=== PATIENT | male | born 1965 | race Caucasian/White ===

== ENCOUNTER 2023-08-07 08:35 | Outpatient (AMB) | payer BC, SELFPAY ==
--- NOTE | 2023-08-07 08:51 | A.SPINEOV_ITS ---
Intake Intake Visit Reasons: lumbar stenosis Intake Note: Mr. Sandhu is here today c/o back pain Circle Edger Required: No Assessment & Plan Assessment & Plan (1) Lumbar radiculopathy: Code(s): M54.16 - Radiculopathy, lumbar region Plan Dear Garry Thank you for referring Mr Sandhu to our office today. 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 He gets tingling of his foot. He will occasionally feel it on the left but the primary symptoms are on the right. 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 The symptoms are aggravated with any kind of activity including prolonged standing, prolonged sitting, walking, bending or lifting etc.. Often he will have to avoid certain activities after a long day at work because the pain has been so severe. He underwent an MRI showing herniated disc at L4-5, pars defects at L5 with spond ylolysis and foraminal stenosis. He was referred to see us for surgical opinion. PMH: He is reasonably healthy, history of hypertension, left total hip replacement, carpal tunnel repair, torn ligament in his right ankle. Denies any heart attacks, strokes, bleeding disorders, kidney disorders, previous abdominal surgery, previous back surgery Social hx: He does not smoke, drink or use any recreational drugs Medications: Amlodipine, Alleve Allergies: Terramycin Physical exam: Slightly antalgic gait but strength and reflexes of the lower extremities is normal Imaging review: Lumbar MRI done at the [facility] in 2023 shows degenerative listhesis at L5-S1 with spondylolysis and bilateral neural foraminal stenosis, worse on the left. He has a central disc herniation at L4-5 with moderate central canal stenosis. 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 He does not have a significant component of back pain. The right leg pain is the main symptom. He has 2 issues in his back that could be part of his syndrome. The 1st is he has a central disc at L4-5 with moderate central canal stenosis with narrowing of the lateral recess. Secondly he has a pars defect at L5 with a grade 1 spondylolisthesis and bilateral neuroforaminal stenosis. Interesting that the stenosis is worse on the left than the right but he is primarily symptomatic on the right. He has been through conservative management. He is interested in surgery. He is hoping to do something later this year, as he will be working a lot over the summer. He was interested in the idea of a cortisone shot as well . I will send him to to see if he will consider an L4-5 epidural vs right L5 TFE. I will review his imaging with Dr. Rangel to finalize a surgical plan, and get him a follow-up sometime around January so we can plan his surgery in the fall. We discussed that in this situation of a spondylolisthesis with nerve compression, there can be 2 separate options including fusion versus nonfusion options. Because he does not have a lot of back pain, usually Dr. Rangel will lean in the direction of a simple decompression without instrumentation as long as the patient understands that this may develop down the road. We did briefly discuss risks and benefits of both. Thank you for allowing us to care for your patient. The total time spent with this visit with this patient was 45 minutes reviewing history, physical exam, lumbar imaging review, and implementation of treatment plan or further diagnostic testing Sheldon Rangel MD,PhD [facility] Orders: Referrals Physiatry Referral M54.16 - Radiculopathy, lumbar region Coding Level of Care Code New Pt Level 4 (50219) Diagnoses Lumbar radiculopathy M54.16
== END 2023-08-07 10:31 | disposition home or self-care (01) ==
PROVIDERS: PCP Internal Medicine; Referring Provider Physician Assistant; Visit Provider Physician Assistant
DX: M54.16 Radiculopathy, lumbar region (principal)
CPT/HCPCS: 99204

== ENCOUNTER → 2023-08-07 08:35 | Outpatient (BNVA) | payer BC, SELFPAY | PROVIDERS: PCP Internal Medicine; Visit Provider Physician Assistant ==

== ENCOUNTER 2024-02-04 06:29 | Day surgery (SDC) | payer BC, SELFPAY ==
[2024-01-14 10:06] VITALS: BP 130/91; PULSE 60; RESP 18; O2SAT 96; BMI 34.4
[2024-02-04] VITALS (7 sets, daily range): BP systolic 112–136; BP diastolic 60–96; PULSE 60–69; RESP 16; TEMP 35.8–36.9; O2SAT 93–98
--- NOTE | 2024-02-04 07:24 | P.HPSUR_ITS ---
Pre-Procedural Eval Section A - 24 Hr Update-Section A only Date of Service: 02/04/24 The patient is an INPATIENT: No Changes since office visit: No Cold of Flu in the past 2 weeks, No New Medical Problems, No Changes in Medication and No Patient answered all questions The patient has been examined within 24 hours of the surgical procedure. The History & Physical has been completed within 30 days and I have reviewed it.: No Section B - Complete if H&P > 30 days Chief Complaint: Radiculopathy, lumbar region Allergies: Allergies Allergy/AdvReac Type Severity Reaction Status Date / Time oxytetracycline Allergy Unknown Verified 01/13/24 08:43 [From Terramycin] Review of Systems Sugical H&P ROS: Negative: Constitution, Cardiovascular, Respiratory, Neurological, Psychiatric, Hem-Onc, Allergic/Immunologic, Gastrointestinal, Genitourinary, Musculoskeletal, Integumentary, Endocrine and Eyes/Ears/No se/Throat Exam Surgical H&P Exam: Normal: HEENT, Normal: Heart, Normal: Lungs, Normal: Extremities, Normal: Abdomen, Normal: Skin and Normal: Neurological (awake, alert,oriented x 3 ) Plan Diagnosis/Plan: Unchanged right L4-5 decompression and L5 foraminotomy Time Spent With Patient Time: Total time managing care of this patient today __5__ minutes.
[2024-02-04] MEDS: methocarbamoL 750 MG TABLET PO (07:30)
[2024-02-04] MEDS: Lactated Ringers 1,000 ML 100 ML IVCONT (07:31)
[2024-02-04] MEDS: Gabapentin 300 MG CAPSULE PO (07:31)
--- NOTE | 2024-02-04 07:42 | PM.DS ---
DS: Providers Provider Date of Service: 02/04/24 Date of discharge: 02/04/24 Primary care physician: Unknown Physician Admitting clinician: Tremaine Rangel DS: Diagnosis Discharge Diagnosis (1) Lumbar radiculopathy: Status: Acute DS: Summary Time Attestation Discharge Coordination Time (in mins): 4 Quality: Safe Use of Opioids Does Pt have an Active Cancer Diagnosis on the Problem List?: No Quality: Stroke Does the patient have a stroke diagnosis?: No Physical Exam Vital Signs: Vital Signs: Last Vital Signs Temp 96.5 F L 02/04/24 07:39 Pulse 69 02/04/24 07:39 Resp 16 02/04/24 07:39 BP 136/96 H 02/04/24 07:39 Pulse Ox 97 02/04/24 07:39 O2 Del Method Room Air 02/04/24 07:39 BMI result Body Mass Index 34.4 Discharge Plan Discharge Patient Disposition: Home, Self-Care Referrals: Physician,Unknown J [Primary Care Provider] - 1 Week Discharge Medications: New docusate sodium [Colace] 100 mg capsule 100 mg PO BID Qty: 20 0RF oxycodone 5 mg tablet 5 mg PO Q4H PRN (Reason: pain) Qty: 30 0RF Rx Instructions: Partial Fill upon patient request. Continued amlodipine 5 mg tablet 5 mg PO DAILY naproxen sodium [Aleve] 220 mg Capsule 220 mg PO DAILY PRN (Reason: Pain) cetirizine 5 mg Tablet 5 mg PO DAILY fluticasone propionate 50 mcg/actuation [place],Suspension 1 spray INTRANASAL DAILY Rx Instructions: administer into each nostril Discharge Orders: Discharge Order (Routine); Ordered 02/04/24 Ordered By: Sheldon Jamil Diet: Advance to usual diet Activity on Discharge: As tolerated Activity Restrictions/Additional Instructions: After your spinal surgery we ask you to observe the following restrictions/guidelines: Activity: It is normal to feel some discomfort as you increase your activity, but that will improve with time. We ask you avoid heavy lifting or acitivities that cause pain. As a general rule, 8lbs is a safe limit for lifting right after surgery. Walk as much as you feel comfortable but not to exhaustion. You will feel extra tired the first few days after surgery. Stay well hydrated. It is OK to walk up and down stairs You may return to driving when you are off narcotics (such as vicodin, oxycodone, dilaudid, etc), and you are back to normal functional capacity. If you have any concerns please check with office before driving. Return to work is specific to each patient and each surgery, so please speak with your doctor/PA at first follow up. Please bring paperwork such as FMLA at that time if you need it filled out. Medications: For optimum pain control, it is best to start with a combination of 500 mg of Tylenol every 4 hours with 600 mg of Motrin every 8 hours, and use narcotics as needed in between for breakthrough pain. We will give you a short supply of narcotics after surgery (usually one weeks worth). If you need more please call the office but do not use more than prescribed. You will need to give our office 48 hours notice if you need narcotics refilled and we do not fill narcotics on weekends or evenings. If you are on a narcotic, it is a good idea to take a stool softener such as colace or senna to avoid constipation If you take blood thinner such as aspirin, Plavix, Coumadin, Effient, Eliquis etc for conditions such as Afib, DVT, Pulmonary embolus, coronary disease, stents etc please speak with your surgeon about specific details as to when you can resume these medications. You can resume NSAIDs on post op day 1 (eg: Motrin, Naproxen, etc). Follow up: Please call the office, , after surgery to arrange a 3 week follow up for wound check. Wound Care: You may remove your dressing on the first day after surgery. ?You may ?leave open to air. Please do not remove the steri strips underneath. they will fall off on their own in one week. IT IS NORMAL FOR THE WOUND TO OOZE OR BE BLOODY FOR A FEW DAYS AFTER SURGERY. ?IF THIS HAPPENS JUST PLACE NEW DRESSING OVER IT TO AVOID STAINING CLOTHES. You may shower on post op day # 1 We ask that you do not let the water soak the wound. If it does get wet, just towel dry lightly. Please do not scrub your incision or place any type of chemical/ointment on the wound. No tub baths, pools or jacuzzis for one month. If you have any leaking or redness from your wound, or fevers, please call office Print Language: Cambodian
--- NOTE | 2024-02-04 08:10 | P.CONAN_ITS ---
Documented by User: Poppy Cormier NP 02/03/24 09:20 HPI - Anesthesia Eval Consult details Narrative: 59yo M for Right L4-5 Daniel-Laminotomy,L4-5 Foraminotomy PAT 01/14/[address] Chelsy HARRISON Active Problems Active Problems: All Active Problems Lumbar radiculopathy (Acute) Past Medical History Medical History Arthritis Hx of simple renal cyst Habitual snoring HTN (hypertension) Surgical History Surgical History Hx of tonsillectomy History of biopsy of bladder H/O colonoscopy History of ankle surgery Hx of carpal tunnel repair History of total left hip replacement Social History Social History Are you a primary laboratory animal care veterinarian to a significant other at home: No Do you presently have visiting nurse or other home services: No Patient Tobacco Use Status: Never used Tobacco Use of substances other than those prescribed or required for medical reasons: No Have you been hit, kicked, punched, or otherwise hurt by someone within the past year? If so, by whom?: No Are you DNR?: No Advance Directives: No Advance Directives Information Provided: Yes Advance Directives on File: No Recently lost weight without trying: No Eating poorly because of decreased appetite: No Nutrition Risks: No Nutritional Risk Poor oral hygiene: Yes (full upper and lower dentures) Meds Allergies Allergy/AdvReac Type Severity Reaction Status Date / Time oxytetracycline Allergy Unknown Verified 02/04/24 07:29 [facility] Home Medications ?Medication ?Instructions ?Recorded ?Confirmed ?Last Taken ?Type amlodipine 5 mg tablet 5 mg PO DAILY 01/13/24 02/04/24 02/04/24 History naproxen sodium 220 mg capsule 220 mg PO DAILY PRN Pain 01/13/24 02/04/24 01/28/24 History (Aleve) cetirizine 5 mg tablet 5 mg PO DAILY 01/14/24 02/04/24 02/04/24 History fluticasone propionate 50 1 spray intranasal DAILY 01/14/24 02/04/24 02/04/24 History mcg/actuation nasal spray,suspension Exam Height,Weight and Vital Signs: Height 5 ft 10 in Weight 108.862 kg Last Vital Signs Pulse 60 01/14/24 10:06 Resp 18 01/14/24 10:06 BP 130/91 H 01/14/24 10:06 Pulse Ox 96 01/14/24 10:06 O2 Del Method Room Air 01/14/24 10:06 Assessment and Plan Assessment Anesthesia Assessment: Chart Reviewed Documented by User: Nuria Valentino, DO 02/04/24 09:07 PMFSH Past Medical History Medical History Arthritis Hx of simple renal cyst Habitual snoring HTN (hypertension) Family History Family history of problems with anesthesia: No Surgical History Surgical History Hx of tonsillectomy History of biopsy of bladder H/O colonoscopy History of ankle surgery Hx of carpal tunnel repair History of total left hip replacement History of Problems with Anesthesia: No Social History Social History Are you a primary laboratory animal care veterinarian to a significant other at home: No Do you presently have visiting nurse or other home services: No Patient Tobacco Use Status: Never used Tobacco Use of substances other than those prescribed or required for medical reasons: No Have you been hit, kicked, punched, or otherwise hurt by someone within the past year? If so, by whom?: No Are you DNR?: No Advance Directives: No Advance Directives Information Provided: Yes Advance Directives on File: No Recently lost weight without trying: No Eating poorly because of decreased appetite: No Nutrition Risks: No Nutritional Risk Poor oral hygiene: Yes (full upper and lower dentures) Meds Allergies Allergy/AdvReac Type Severity Reaction Status Date / Time oxytetracycline Allergy Unknown Verified 02/04/24 07:29 [From Terramycin] Home Medications ?Medication ?Instructions ?Recorded ?Confirmed ?Last Taken ?Type amlodipine 5 mg tablet 5 mg PO DAILY 01/13/24 02/04/24 02/04/24 History naproxen sodium 220 mg capsule 220 mg PO DAILY PRN Pain 01/13/24 02/04/24 01/28/24 History (Aleve) cetirizine 5 mg tablet 5 mg PO DAILY 01/14/24 02/04/24 02/04/24 History fluticasone propionate 50 1 spray intranasal DAILY 01/14/24 02/04/24 02/04/24 History mcg/actuation nasal spray,suspension Exam Exam Date and Time: 02/04/24 0810 Height,Weight and Vital Signs: Height 5 ft 10 in Weight 108.862 kg Last Vital Signs Pulse 60 01/14/24 10:06 Resp 18 01/14/24 10:06 BP 130/91 H 01/14/24 10:06 Pulse Ox 96 01/14/24 10:06 O2 Del Method Room Air 01/14/24 10:06 Vital Signs Pulse Rate 60 01/14/24 10:06 Respiratory Rate 18 01/14/24 10:06 Blood Pressure 130/91 H 01/14/24 10:06 Pulse Oximetry 96 01/14/24 10:06 Oxygen Delivery Method Room Air 01/14/24 10:06 Temperature 96.5 F L 02/04/24 07:39 Pulse Rate 69 02/04/24 07:39 Respiratory Rate 16 02/04/24 07:39 Blood Pressure 136/96 H 02/04/24 07:39 Pulse Oximetry 97 02/04/24 07:39 Oxygen Delivery Method Room Air 02/04/24 07:39 Airway Mallampati Class: III TM Dist: <=3cm Neck ROM: Full Denture: Upper and Lower Heart: S1S2 Lungs: CTAB Assessment and Plan Assessment Anesthesia Assessment: Anesthesia Plan Discussed and Chart Reviewed Final Anesthetic Review Family History of Problems with Anesthesia: No History of Problems with Anesthesia: No NPO: Yes ASA Class: II Final Preanesthetic Review: No Changes in Pt Med Stat, Meds/Allgs Chart Revi ewed, Consent Obtained/Reviewed and Anes Risks/Benef Reviewed Patient Risk: Low Procedure Risk: Intermediate Anesthetic Plan Anesthetic Plan: GA and Agree w/ Assess. and Plan Disposition: Standard PACU
--- NOTE | 2024-02-04 09:48 | W.PM.OPN ---
Operative Note Operative Note Date of Service: 02/04/24 Narrative: Preoperative Diagnosis: Right L4-5 spinal stenosis/lateral recess stenosis/neural foraminal stenosis Operation: Right L4-5 Laminotomy, Partial facetectomy and foraminotomy with use of microscope Consent Informed Consent was obtained for this operation. I have explained the nature, purpose and benefits of the operation. I have discussed the risks and benefit of the operation including possible complications or adverse events with patient/family. Alternative(s) were discussed with the patient with their relative benefits and risks as well as the consequences of not accepting the operation were included in obtaining consent. Surgeon: MIKE HERNÁNDEZ MD, PHD Procedure Assisted By: Sheldon Diaz Description of Procedure This patient is suffering from right L5 radiculopathy due to lateral recess stenosis and foraminal stenosis.. The patient was offered a decompression. The procedure complications were explained. The patient was consented. The patient was brought to the operating room and endotracheally intubated. The patient was turned in prone position on the Dylan frame. Prep and drape was done followed by timeout. The Physician virtual assistant for advertisers provided access. A mid lumbar incision was made followed by release of the paravertebral muscle on the right side to expose the L4-5 lamina and facet joints. An intraoperative x-ray was obtained to confirm the correct level. The microscope was brought in. I took over the procedure. The high-speed drill was used to do a L4-5 laminotomy until flavum ligament was reached. A #2 Kerrison was used to expand the laminotomy near flush to the pedicles and to include a partial facetectomy. The flavum ligament was opened and resected with a #3 Kerrison to decompress the underlying thecal sac. The flavum ligament was removed to decompress the lateral recess and the exiting L5 nerve root. A long nerve hook could be easily passed along the medial side of the pedicle into the foramina as a sign of adequate decompression. The microscope was removed. Hemostasis was done. The physician virtual assistant for advertisers close the Incision in 2 layers. Steri-Strips were used to approximate incision. An OpSite with Tegaderm was used to cover the incision. All sponge needle counts were correct. Patient was extubated and transported in stable is to recovery room. Anesthesia: General Estimated Blood Loss (ml): 15 Complications: None Duration of Surgery: Under 60 Minutes Postoperative Plan: Discharge to home
== END 2024-02-04 11:15 | disposition home or self-care (01) ==
PROVIDERS: Visit Provider Neurological Surgery
PROC: (CPT 63047; principal; 2024-02-04 10:00)
DX: M54.16 Radiculopathy, lumbar region (principal); M48.061 Spinal stenosis, lumbar region without neurogenic claudication; I10 Essential (primary) hypertension; Z79.1 Long term (current) use of non-steroidal anti-inflammatories (NSAID); Z79.899 Other long term (current) drug therapy; Z88.1 Allergy status to other antibiotic agents; Z98.890 Other specified postprocedural states
CPT/HCPCS: 63047; J0131; J0690; J1100; J1885; J2371; J2405; J2704; J3010

== ENCOUNTER → 2024-02-04 06:29 | Outpatient (BNV) | payer BC, SELFPAY | PROVIDERS: Visit Provider Neurological Surgery | DX: M54.16 Radiculopathy, lumbar region (principal); M48.062 Spinal stenosis, lumbar region with neurogenic claudication | CPT/HCPCS: 63047; 99499 ==

== ENCOUNTER 2024-02-25 11:04 | Outpatient (AMB) | payer BC, SELFPAY ==
--- NOTE | 2024-02-25 11:14 | HO.SPINEOV ---
Intake Visit Reasons: 1st post op Intake Note: Mr. Sandhu is here today for his 1st post-op appointment. Money Manager Required: No Allergies oxytetracycline [From Terramycin] Allergy (Verified 02/25/24 11:16) Unknown Assessment & Plan Assessment & Plan (1) Lumbar radiculopathy: Code(s): M54.16 - Radiculopathy, lumbar region Category: Medical Plan Procedure: Right L4-5 Laminotomy, Partial facetectomy and foraminotomy [place] comes in today for his 1st postoperative visit after having a L4-5 decompression completed by our service. To recap he was initially evaluated in our office for 1-2 years of progressively worsening right leg pain that starts on the right side of his low back goes down into his groin, into his posterolateral thigh and into his calf. Today, he reports complete resolution of his radiculopathy. He feels he is essentially back to normal activity. 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 I provided him with a letter to return to work during this visit. No new neurological deficits. The patient ambulates well and rises from seated position without difficulty. His posterior incision site is closed and well healed. I would like to follow up with [place] 1 more time in 6 weeks to ensure continues to heal well from his surgery. Darron Rangel MD,PhD [facility] Coding Level of Care Code Global (65399) Diagnoses Lumbar radiculopathy M54.16
== END 2024-02-25 11:31 | disposition home or self-care (01) ==
PROVIDERS: PCP Internal Medicine; Visit Provider Physician Assistant
DX: M54.16 Radiculopathy, lumbar region (principal)
CPT/HCPCS: 99024

== ENCOUNTER → 2024-02-25 11:04 | Outpatient (BNVA) | payer BC, SELFPAY | PROVIDERS: PCP Internal Medicine; Visit Provider Physician Assistant ==

== ENCOUNTER 2024-04-05 14:11 | Outpatient (AMB) | payer BC, SELFPAY ==
--- NOTE | 2024-04-05 14:33 | A.SPINEOV_ITS ---
Intake Visit Reasons: 2nd post op Intake Note: Mr. Sandhu is here today for his 2nd post op. Computer Architect Required: No Allergies oxytetracycline [From Terramycin] Allergy (Verified 04/05/24 14:46) Unknown Assessment & Plan Assessment & Plan (1) Lumbar radiculopathy: Code(s): M54.16 - Radiculopathy, lumbar region Category: Medical Plan Operation: Right L4-5 Laminotomy, Partial facetectomy and foraminotomy [place] comes in today for his 2nd postoperative visit. He continues to do very well since surgery and reports no concerns regarding his right leg. 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 No new neurological deficits. Patient is able to ambulate well, rises from a seated position without difficulty. Incision sites are closed, well healing, wi th no signs of drainage. There is no need for continued routine follow up with [place], he may be discharged as a patient. Darron Rangel MD,PhD [facility] Coding Level of Care Code Global (24292) Diagnoses Lumbar radiculopathy M54.16
== END 2024-04-05 15:16 | disposition home or self-care (01) ==
PROVIDERS: PCP Internal Medicine; Visit Provider Physician Assistant
DX: M54.16 Radiculopathy, lumbar region (principal)
CPT/HCPCS: 99024

== ENCOUNTER → 2024-04-05 14:11 | Outpatient (BNVA) | payer BC, SELFPAY | PROVIDERS: PCP Internal Medicine; Visit Provider Physician Assistant ==

== ENCOUNTER 2024-10-20 13:15 | Outpatient (AMB) | payer BC, SELFPAY ==
--- OUTSIDE RECORDS SUMMARY | 2024-10-20 13:19 | XMS_ITS | Clinical Summary ---
Author Organization [facility] [place] [address] Care Team Providers Care Deployment Engineer Name Role Phone Melva Hylton MD Primary Care Provider [phone] Allergies Active Allergy Reactions Criticality Noted Date Comments Terramycin 04/28/2024 Reaction as a child Medications cetirizine (ZyrTEC) 10 mg tablet Take 1 tablet (10 mg total) by mouth 1 (one) time each day. Active fluticasone propionate (FLONASE) 50 mcg/actuation nasal spray Administer 1 spray into each nostril 1 (one) time each day. Shake gently. Before first use, prime pump. After use, clean tip and replace cap. Active amLODIPine (NORVASC) 5 mg tabletIndications :Essential hypertension Take 1 tablet (5 mg total) by mouth 1 (one) time each day. 90 tablet 2 Active Active Problems Problem Noted Date Diagnosed Date Essential hypertension 04/28/2024 Seasonal allergies 04/28/2024 Kidney cysts 04/28/2024 Asymptomatic microscopic hematuria 04/28/2024 Encounters Date Type Department Care Team Description 10/12/2024 Telephone Internal Medicine - [facility] [address] [place] [phone] Melva Hylton MD Referral 09/20/2024 2:30 PM EDT Office Visit Internal Medicine - [facility] [address] [place] [phone] Kathy Ronquillo NP Essential hypertension (Primary Dx); Seasonal allergies; Optic neuritis; Routine eye exam; Bilateral hip pain 07/27/2024 8:30 AM EST Office Visit Internal Medicine - [facility] [address] [facility] [place] [phone] Melva Hylton MD Essential hypertension (Primary Dx); Encounter to establish care; Renal cyst; Microhematuria; Screening for HIV without presence of risk factors; Need for hepatitis C screening test; Allergic rhinitis, unspecified seasonality, unspecified trigger from Last 3 Months Surgical History Surgery Date Site/Laterality Comments COLONOSCOPY 01/21/13 PROCEDURE: HISTORICAL COLONOSCOPY; COMMENT: normal; repeat in ten yrs HIP ARTHROPLASTY 10/10/2019 Left PROCEDURE: HISTORICAL HIP REPLACEMENT; COMMENT: Dr. 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 9) with comorbidity (CMS/HCC V24, CMS/HCC V28) 05/10/2020 DX:Severe obesi ty (BMI 35.0- 39.9) with comorbidity ([facility]) History of 2019 novel rojas virus disease (COVID-19) 05/10/2020 DX:History of 2019 novel cor onavirus disease (COVID-19) Arthritis Hypertension Low back pain Urinary tract infection Visual impairment Social History Tobacco Use Types Packs/Day Years Used Date Smoking Tobacco: Never Smokeless Tobacco: Never Tobacco Cessation:Counseling Given: Not Answered Alcohol Use Standard Drinks/Week Comments Not Currently 0 (1 standard drink = 0.6 oz pur e alcohol) Housing Instability Answer Date Recorde d Are you worried that in the next 2 months you may not have stable housing? No 09/14/2024 Food Access & Nutrition Answer Date Rec orded Do you have access to a vari ety of food including fruits and vegetables? Yes 09/14/2024 Access to Healthcare Answer Date Record ed Within the last 3 months, ho w many times did you visit the emergency department for your medical care? 0 09/14/2024 Health Literacy Answer Date Recorded How often do you need to hav e someone help you when you read instructions, pamphlets, or other written material from your doctor or pharmacy? Never 09/14/2024 Caregiver: How often do you need to have someone help you when you read instructions, pamphlets, or other written material from your doctor or pharmacy? Not on file 09/14/2024 Financial Risk Answer Date Recorded How hard is it for you to pa y for the very basics like food, housing, medical care, and air conditioning / heating? Not very hard 09/14/2024 Transportation Answer Date Recorded Has the lack of transportati on kept you from meetings, work, or from getting things needed for daily living? No Has the lack of transportati on kept you from medical appointments or from getting medications? No 09/14/2024 Social Isolation Answer Date Recorded How often do you feel lonely or isolated from th ose around you? Never 09/14/2024 Food Risk Answer Date Recorded Within the past 12 months we worried whether our food would run out before we got money to buy more. Never true 09/14/2024 Within the past 12 months th e food we bought just didn't last and we didn't have money to get more. Never true 09/14/2024 Dependent Care Answer Date Recorded Do you need help finding or paying for care for your loved ones. For example, child therapist or elderly care for an older adult? No 09/14/2024 Education Answer Date Recorded Do you think completing more education or training, like finishing a GED, going to college, or learning a trade, would be helpful for you? No 09/14/2024 Employment and Income Answer Date Recor ded During the last four weeks, have you been actively looking for work? No 09/14/2024 Living Situation Answer Date Recorded What is your living situation? 0 09/14/2024 Sex and Gender Information Value Date Recorded Sex Assigned at Not on file Legal Sex Male 9:45 PM EST Gender Identity Not on file Sexual Orientation Not on file Obstetrics History Last Filed Vital Signs Vital Sign Reading Time Taken Comments Blood Pressure 136/82 09/20/2024 2:14 PM EDT aut o Pulse 60 09/20/2024 2:14 PM EDT Temperature 36.7 ??C (98.1 ??F) 04/28/2024 8:46 AM ES T Respiratory Rate - - Oxygen Saturation 97% 04/28/2024 8:46 AM EST Inhaled Oxygen Concentration - - Weight 114 kg (250 lb 8 oz) 09/20/2024 2:14 PM E DT Height 177.8 cm (5' 10 ) 09/20/2024 2:14 PM EDT Body Mass Index 35.94 09/20/2024 2:14 PM EDT Plan of Treatment Upcoming Encounters Date Type Department Care Team (Late st Contact Info) Description 01/30/2025 9:00 AM EDT Office Visit Internal Medicine - [facility] [address] [place] [phone] Melva Hylton MD [address] [place], [place] Health Maintenance Due Date Last Done Comments Zoster Vaccines (1 of 2) 2013 Cholesterol Screening (Lipid Panel) 05/01/2022 HIV Screening 05/01/2022 Hepatitis C Screening 05/01/2022 Hypertension/CHF/CAD Annual BMP Blood Test 07/09/2023 COVID-19 Vaccine (3 - 2023-2 5 season) 2024 10/09/2020, 09/11/2020 Postponed from 01/24/2024 (Patient Refused) Influenza Vaccine (Season Ended) 2025 DTaP,Tdap,and Td Vaccines (2 - Td or Tdap) 06/15/2025 06/15/2015 Pneumococcal Vaccine: 50+ Years (1 of 1 - PCV) 08/02/2025 Postponed from 12/24 (Patient Refused) Depression Screening 09/14/2025 09/14/2024 Social Influencers of Health Screening 09/14/2025 09/14/2024 Colorectal Cancer Screening: Colonoscopy 10/20/2033 10/21/2023 RSV Immunization Adult Patients (1 - 1-dose 75+ series) 2038 HIB Vaccines Aged Out No longer eligi ble based on patient's age to complete this topic HPV Vaccines Aged Out No longer eligi ble based on patient's age to complete this topic Hepatitis A Vaccines Aged Out No long er eligible based on patient's age to complete this topic Hepatitis B Vaccines Aged Out No long er eligible based on patient's age to complete this topic IPV Vaccines Aged Out No longer eligi ble based on patient's age to complete this topic MMR Vaccines Aged Out No longer eligi ble based on patient's age to complete this topic Meningococcal ACWY Vaccine Aged Out N o longer eligible based on patient's age to complete this topic Meningococcal B Vaccine Aged Out No l onger eligible based on patient's age to complete this topic Pneumococcal Vaccine: Pediatrics (0 to 5 Years) and At-Risk Patients (6 to 64 Years) Aged Out No longer eligible b ased on patient's age to complete this topic RSV Immunization Patients Under 20 months Aged Out No longer eligible b ased on patient's age to complete this topic Varicella Vaccines Aged Out No longer eligible based on patient's age to complete this topic Insurance . [address] [address] Care Teams Deployment Engineer Relationship Specialty Start Date End Date Melva Hylton MD [address] [place] [address] PCP - General Internal Medicine 07/12/24
--- NOTE | 2024-10-20 13:37 | HO.SPINEOV ---
Intake Visit Reasons: recurrent LBP/ sx 02/04/24 Intake Note: Mr. Sandhu is here today c/o recurrent low back pain. Manager Distribution Required: No Allergies oxytetracycline [From Terramycin] Allergy (Verified 04/05/24 14:46) Unknown Assessment & Plan Assessment & Plan (1) Bilateral groin pain: Code(s): R10.31 - Right lower quadrant pain; R10.32 - Left lower quadrant pain Category: Medical (2) Lumbar radiculopathy: Code(s): M54.16 - Radiculopathy, lumbar region Category: Medical Plan Mr Sandhu is returning in follow-up today. He underwent a right L4-5, right L5 foraminotomy with Dr. Rangel last year for right leg pain. He was good for number of months and was very happy with the results of his surgery but a few months back the symptoms started to return. It has been progressive right-sided buttock pain shooting down into his calf on the right side consistent with his previous leg pain. He has also been getting bilateral groin pain as well. He had a left total hip arthroplasty done in 2019. He has not had a checkup on that a long time. He is generally followed by Dr. Tobin who did the surgery. The pain is aggravated with standing and walking as well as just simple activities such as standing in place etc.. He does take [id number]-hadiioa pain medications such as naproxen to help with the pain. On exam, he is uncomfortable, has difficulty standing up. He has full strength of bilateral lower extremities with normal reflexes. Gait is antalgic. 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 Because he has no centralized back pain, we decided against starting with fusion, hoping to avoid it. Unfortunately it is looking like he will need fusion surgery. I will need a new set of x-rays and a new MRI as well. He was also curious about his hip pain and groin pain, so I will get a set of hip x-rays just as a precaution. I will see him back once the MRI is completed and review with Dr. Rangel. Total amount of time spent in this visit was 20 minutes in discussion of symptoms, lumbar imaging results and subsequent plan of care Sheldon Rangel MD,PhD [facility] Orders: Orders XR lumbar spine 4V min Today M54.16 - Radiculopathy, lumbar region XR hips MEDINA min 3V Today R10.31 - Right lower quadrant pain, R10.32 - Left lower quadrant pain MR lumbar spine wo/w con Today M54.16 - Radiculopathy, lumbar region Coding Level of Care Code Est Pt Level 3 (10318) Diagnoses Bilateral groin pain R10.31; R10.32 Lumbar radiculopathy M54.16
== END 2024-10-20 14:37 | disposition home or self-care (01) ==
PROVIDERS: PCP Internal Medicine; Visit Provider Physician Assistant
DX: R10.31 Right lower quadrant pain (principal); R10.32 Left lower quadrant pain; M54.16 Radiculopathy, lumbar region
CPT/HCPCS: 99213

== ENCOUNTER 2024-10-20 13:15 | Outpatient (REF) | payer BC, SELFPAY ==
--- NOTE | ~2024-10-20 | XR_ITS ---
CLINICAL HISTORY: R10.31 - Right lower quadrant pain 4 view bilateral hips Comparison: None Findings: No acute fracture or dislocation Moderate changes of osteoarthritis The soft tissues are unremarkable. IMPRESSION: No acute findings. This document has been electronically signed by: Pk العلي MD on 10/22/2024 10:25:24
--- NOTE | ~2024-10-20 | XR_ITS ---
CLINICAL HISTORY: M54.16 - Radiculopathy, lumbar region --- Additional Notes or Special Instructions: standing, a p, lateral with flex ext views 4 views lumbar spine Comparison: None Findings: There is 1.1 cm anterior displacement of L5 on S1. With flexion, this is 1 cm and with extension 0.9 cm. No acute fractures or dislocation. There is multiple level degenerative disc and facet change. IMPRESSION: Anterior displacement of L5 on S1 with measurements as provided. This document has been electronically signed by: Pk العلي MD on 10/22/2024 10:17:59
== END 2024-10-20 13:16 | disposition home or self-care (01) ==
LOC: HO.HOSX 13:15
PROVIDERS: PCP Internal Medicine; Visit Provider Physician Assistant
DX: R10.31 Right lower quadrant pain (principal); R10.32 Left lower quadrant pain; M54.16 Radiculopathy, lumbar region; Z96.642 Presence of left artificial hip joint; Z98.890 Other specified postprocedural states
CPT/HCPCS: 72110; 73522

== ENCOUNTER → 2024-10-20 14:28 | Outpatient (BNV) | payer BC, SELFPAY | PROVIDERS: PCP Internal Medicine; Visit Provider Specialist | DX: R10.31 Right lower quadrant pain (principal); M51.27 Other intervertebral disc displacement, lumbosacral region | CPT/HCPCS: 72110; 73522 ==

== ENCOUNTER → 2024-11-07 15:35 | Outpatient (BNV) | payer BC, SELFPAY | PROVIDERS: Visit Provider Radiology Diagnostic Radiology | DX: M48.062 Spinal stenosis, lumbar region with neurogenic claudication (principal) | CPT/HCPCS: 72158 ==

== ENCOUNTER 2024-11-07 15:36 | Outpatient (REF) | payer BC, SELFPAY ==
--- NOTE | ~2024-11-07 | MR_ITS ---
EXAMINATION: MR LUMBAR SPINE WITHOUT AND WITH CONTRAST CLINICAL INFORMATION: Radiculopathy, lumbar region. COMPARISON: None available. TECHNIQUE: MRI of the lumbar spine was obtained using routine sequences with and without contrast. Intravenous contrast: Gadolinium based contrast. Total of 10 mL. No reported immediate complications. FINDINGS: Last rib-bearing vertebra labeled T12. Degenerative changes likely spondylolysis pars interarticularis L5-S1. Right hemilaminectomy, L4-5. Grade 1 anterolisthesis L5-S1. Bone marrow inhomogeneity. There is a subtle bone marrow STIR signal involving the posterior spinous processes of L2 and to a lesser extent L1 and T12 and the posterior elements of L5-S1. Multilevel disc desiccation more pronounced at L5-S1, L4-5 and T11-12 to T12-L1. Schmorl node superior endplate T11 and T12. Conus medullaris ends at pedicle of L1 with normal signal. The neural elements of the filum terminalis demonstrated no grouping or clumping. Irregular enhancement involving the postsurgical changes at the right hemilaminectomy L4-5 and at the fat planes. No fluid collections. T12-L1: Broad-based disc bulging. Facet joint and ligamentum flavum hypertrophy. No compression upon neural elements. L1-2: Broad-based disc bulging. Facet joint and ligamentum flavum hypertrophy. No compression upon neural elements. L2-3: Broad-based disc bulging. Facet joint and ligamentum flavum hypertrophy. No compression upon neural elements. L3-4: Broad-based disc bulging. Facet joint and ligamentum flavum hypertrophy. Reduced AP diameter of the thecal sac and neuroforamina. No compression upon neural elements. L4-5: There is a left midline subarticular focal hyperintense T2 enhancing signal abnormality. There is ligamentum flavum hypertrophy. There is central spinal canal stenosis with CSF effacement of the thecal sac. Bilateral neuroforamina narrowing encroaching the exiting nerve roots. L5-S1: Broad-based disc bulging. Facet joint and ligamentum flavum hypertrophy. Central spinal canal stenosis with CSF effacement of the thecal sac. Bilateral neuroforamina stenosis encroaching likely compressing the L5 exiting nerve roots. Bilateral subcentimeter nonenhancing cystic lesions in the kidneys, the largest measures 12 mm in the midportion lower pole junction of the right kidney. MR/MR lumbar spine wo/w con IMPRESSION: Right hemilaminectomy, L4-5 with the associated post surgical changes. There is likely focal left midline subarticular granulation signal at L4-5 with associated the spondylosis resulting in central spinal canal and to a lesser extent bilateral neuroforamina stenosis compressing the neural elements of the thecal sac. Grade 1 anterolisthesis L5-S1 resulting in central spinal canal and bilateral neuroforamina stenosis encroaching likely compressing the neural elements. Electronically signed by: Ben Rios MD 11/08/2024 08:15 AM EDT
[2024-11-07] MEDS: gadobutroL 10 ML VIAL IVPUSH (16:19)
--- OUTSIDE RECORDS SUMMARY | 2024-11-07 17:31 | XMS_ITS | Encounter Summary ---
Author Organization [facility] [place] [address] Care Team Providers Care Project Archivist Name Role Phone Melva Hylton MD Primary Care Provider [phone] Reason for Visit * Reason Onset Date Comments REFERRAL VERIFICATION 10/21/2024 Encounter Details Date Type Department Care Team ([facility] st Contact Info) Description 10/21/2024 Telephone Internal Medicine - [facility] [address] [place] [phone] Melva Hylton MD [address] [place] [phone] REFERRAL VERIFICATION Social History Tobacco Use Types Packs/Day Years Used Date Smoking Tobacco: Never Smokeless Tobacco: Never Alcohol Use Standard Drinks/Week Comments Not Currently [...] Record ed Within the last 3 months, leslie mendiola many times did you visit the emergency [...] care for your loved ones. For example, children's counselor or elderly care for an older adult? [...] on file Sexual Orientation Not on file documented as of this encounter Progress Notes * Jayshree Guveara MA - 10/25/2024 4:23 PM EDT CELINEI : MUSA Monge . Lmtcjuly on Carina voice mail . Please transfer Carina to ext : [phone] thanks. I spoke with Mr. Sandhu . Per patient he was seen with LUCRECIA Yoo over at [address] [place] [address] [address] [place], [place] Mr. Sandhu also stated he cancel his yesterday and today . Patient only wishes to see Sheldon SINGER. Carina was also inform of message above . ELBA RMMaday * Kathy Lanza NP - 10/25/2024 12:09 PM EDT Who is calling -Carina at senior front end engineer at neurosurgery office at [place] What is specific problem -Caller wants a callback to verify if the pt was referred to a neuro surgeon or neurology as they received an ambulatory referral to neurology. Caller would like to also add that Sheldon Jamil is no longer at their practice as well. This referral is for neurology not neurology surgeon. The reason for the referral is patient's history of MS since 2011. * Anais Conde - 10/21/2024 8:51 AM EDT Who is calling -Carina at senior front end engineer at neurosurgery office at [place] What is specific problem -Caller wants a callback to verify if the pt was referred to a neuro surgeon or neurology as they received an ambulatory referral to neurology. Caller would like to also add that Sheldon Jamil is no longer at their practice as well. Is a callback needed -yes and ask for Carina @ [phone] documented in this encounter Plan of Treatment Upcoming Encounters Date Type Department Care Team (Late st Contact Info) Description 01/30/2025 9:00 AM EDT Office Visit [facility] - [facility] [address] [place] [phone] Melva Hylton MD [address] [facility] [place] documented as of this encounter Visit Diagnoses Not on filedocumented in this encounter Additional Health Concerns Assessment Noted Time PHQ-9 Depression Total Score: 0 09/15/19 11:42 AM EDT documented as of this encounter Care Teams Project Archivist Relationship Specialty Start Date End Date Melva Hylton MD [address] [place] [phone] PCP - General Internal Medicine 07/12/24 documented as of this encounter
== END 2024-11-07 15:37 | disposition home or self-care (01) ==
LOC: HO.MRI 15:36
PROVIDERS: Visit Provider Physician Assistant
DX: M54.16 Radiculopathy, lumbar region (principal)
CPT/HCPCS: 72158; A9585

== ENCOUNTER 2025-03-31 12:57 | Outpatient (AMB) | payer BC, SELFPAY ==
--- NOTE | 2025-03-31 13:43 | A.SPINEOV_ITS ---
Intake Visit Reasons: discuss surgery Intake Note: Mr. Sandhu is here today to Discuss Surgery. Government Affairs Director Required: No Allergies oxytetracycline (From Terramycin) Allergy (Verified 03/31/25 13:44) Unknown Assessment & Plan Assessment & Plan (1) Lumbar radiculopathy: Code(s): M54.16 - Radiculopathy, lumbar region Category: Medical Plan Mr Sandhu is here in follow-up. He has been getting significant return of his right leg pain. He has been doing right L5 TFESI injections with Dr. Núñez but unfortunately the affect is now very short-lived. As outlined in the telephone conversations I had with him in October after his MRI at [place] was done, because he has spondylolysis at L5, he was a bit high risk for recurrence of pain and needing fusion. At that time I had reviewed the imaging with Dr. Anglin who thought an anterior lumbar interbody approach would be fine. I reviewed his MRI done here again at [facility] today with Dr. Rangel. We reviewed the anterior lumbar interbody fusion approach, risks, benefits etc.. We will contact office to arrange a surgical date. The patient was given risk and benefits of anterior lumbar surgery including but not limited to infection, hematoma, nerve injury, durotomy, weakness, bowel/bladder injury, persistent pain, and pseudoarthosis or instrumentation failure. In addition to this for males undergoing anterior lumbar fusion there is a low risk of retrograde ejaculation. We also discussed the option to continue with conservative treatment and patient wishes to proceed with surgery. They are aware they should stop NSAIDs 7 days prior to surgery. All questions were answered to the best of our ability. If there is anything about this patients medical history that we have overlooked or concerns you have about us proceeding with surgery we would appreciate any input you can offer Total amount of time spent in this visit was 20 minutes in discussion of symptoms, lumbar MRI imaging results and subsequent plan of care Sheldon Rangel MD,PhD [facility] Coding Level of Care Code Est Pt Level 3 (78447) Diagnoses Lumbar radiculopathy M54.16
--- OUTSIDE RECORDS SUMMARY | 2025-03-31 15:09 | XMS_ITS | Data Portability ---
Author Organization [facility], [address] Address [address] [place] [address] Assessment No assessment recorded. Plan of Treatment Reminders Order Date Submit Date Provider Last Modified By Organization Details Last Modified Time Details Appointments None recorded. Lab None recorded. Referral None recorded. Procedures None recorded. Surgeries None recorded. Imaging None recorded. Medication Orders cephalexin 500 mg capsule 2023 [id number], [address] [place], [address], 4 14:40:38 Patient TargetsNo targets recorded. Patient InstructionsNo instructions recorded. Reason for Referral None Reported. Problems Name Problem SNOMED Code Status Onset Date Resolution Date Notes Provider Name and Address Organization Details Recorded Time Hypertensiv e disorder 55671163 Active Miriam Angela null, [place] - [facility] 4 14:24:01 Cellulitis of left upper limb 3713631985739 9108 Active 2023 Arcadio Andres NP [address] [place], [place], [address] [facility] [place] - [facility] 4 14:40:07 Problem Notes None recorded. Medical Equipment None Reported. Allergies No known drug allergies Medications Name Sig Start Date Stop Date Status Note LastModified by Organization Details LastModified Time tizanidine 2 mg tablet TAKE ONE TABLET BY MOUTH THREE TIMES A DAY 01/23 completed Not Available Not Available Not Available moexipril 7.5 mg tablet TAKE ONE TABLET BY MOUTH EVERY DAY active Not Available Not Available No t Available propranolol 10 mg tablet TAKE ONE TABLET BY MOUTH TWICE A DAY 01/23 completed Not Available Not Available Not Available cephalexin 500 mg capsule Take 1 capsule every 8 hours by oral route with meal(s) for 7 days, for skin infection . 2023 active Not Available Not Available Not Avai lable naproxen 500 mg tablet TAKE ONE TABLET BY MOUTH TWICE A DAY 01/23 completed Not Available Not Available Not Available GaviLyte-G 236 gram-22.74 gram-6.74 gram-5.86 gram oral solution TAKE 8 OZ BY MOUTH DIRECTED. FOLLOW PREP INSTRUCTI ONS GIVEN BY YOUR DOCTORS OFFICE 01/23 completed Not Available Not Available Not Available Vitals Date Recorded Body height Body weight Pain severity - 0-10 verbal numeric rating [Score] - Reported Respiratory rate Body temperature Oxygen saturation Oxygen saturation in Arterial blood by Pulse oximetry Heart rate Systolic And Diastolic Provider Name and Address Organization Details Last Updated DateTime 4 177.8 cm 44993.5 5 g 0 18 /min 97.3 [degF] 99 % 99 % 58 /min 166/78 mm[Hg] Miriam Angela PA - [facility] 4 14:25:28 Social History Question Answer Notes LastModified by [employer] Details LastModified Time Tobacco Smoking Status Never Smoker Miriam Angela das PA - [facility] 01/24/2024 14:24:11 What Is Your Relationship Status? Information not available 01/24/2024 Have You Recently Traveled Abroad? No Information not available 01/24/2024 Sex: Unknown Functional Status Question Answer Note LastModified by [employer] Details LastModified Time Do you use any illicit or recreational drugs? No Information not available 01/24/2024 Do you or have you ever used any other forms of tobacco or nicotine? No Information not available 01/24/2024 What is your level of alcohol consumption? None Information not available 01/24/2024 Are you currently employed? Yes Information not available 01/24/2024 Mental Status None recorded. Family History Nothing Reported. Medical History No medical history recorded. Immunizations Vaccine Type Date Status Note Provider Nam e and Address Organization Details Recorded Time Influenza, MDCK, quadrivalent, PF 05/05/2023 completed Miriam Angela null, PA - [facility] 01/24/2024 14:23:04 COVID-19, mRNA, LNP-S, PF, 30 mcg/0.3 mL dose 08/08/2020 completed Miriam Angela null, [place] - [facility] 01/24/2024 14:23:04 COVID-19, mRNA, LNP-S, PF, 30 mcg/0.3 mL dose 03/08/2021 completed Miriam Angela null, PA - [facility] 01/24/2024 14:23:04 COVID-19, mRNA, LNP-S, PF, 30 mcg/0.3 mL dose, martín-sucrose 10/14/2021 completed Miriam Angela null, PA - [facility] 01/24/2024 14:23:04 COVID-19, mRNA, LNP-S, bivalent, PF, 30 mcg/0.3 mL dose 03/12/2022 completed Miriam Angela null, PA - [facility] 01/24/2024 14:23:04 Influenza, split virus, quadrivalent, PF 03/12/2022 completed Miriam Angela null, PA - [facility] 01/24/2024 14:23:04 Past Encounters Encounter ID Performer Location Encounter Start Date Encounter Closed Date Diagnosis/Indication Diagnosis SNOMED-CT Code Diagnosis ICD10 Code Diagnosis IMO Codes Diagnosis Note [id number] [address] [address] [address] [address] [place] [phone] 10/14/2020 13:15:03 10/14/2020 13:56:14 [id number] [facility] [address] [place] [id number] 02/06/2019 12:47:05 02/06/2019 13:18:31 [id number] Arcadio Andres [place] [address] [place] [id number] 01/24/2024 13:27:25 01/24/2024 14:41:05 Cellulitis of left upper limb [id number] L03.114 Based on your presentati on and exam today, I am diagnosing you with cellulitis . I am going to prescribe you and antibiotic to cover this infection. Please be sure to complete the full course of this antibiotic to prevent antibiotic resistance . I suggest with any antibiotic that you take Florastor or another probiotic. This help re-coloniz e you body with the good bacteria. It might take 3-4 days for the antibiotic to start working - so don't panic if your infection gradually worsens over the next 48 hours before it gets better. The following are my recommenda tions to help you feel better and aid in resolving this infection: 1. No creams or lotions on the affected area - so no Antibiotic ointment.2 . Warm Epsen Salt Soaks - 2 or 3 x daily. This will help move the infection to the surface of the skin.3. Take Ibuprofen or Tylenol if you do not have any allergies to these medication s. If you take a blood thinner you should not take NSAIDS like Ibuprofen. These medication will help with the inflammati on in your respirator y tract which should help the cough.4. Do no squeeze or pick at the area. This can worsen the infection. The following are warning signs to look out for that would suggest the infection is worsening. This would mean you should be seen again:1. Fever > 100.52. Redness is spreading to double the size in 24 hours3. Increased swelling and pain.4. Inability to move a joint5. Swollen lymph nodes that are tender Thank you for using [employer] today, please don't hesitate to call or reach out to us if you have any questions or concerns. Health Concerns Section Related Observation LastModified by Organization Detai ls LastModified Time None Recorded Concern Status LastModified by Organization Details LastModified Time None Recorded Advance Directives Directive None Recorded Payers Insurance Date Sequence Insurance Name Policy Number Policy Elise Covered Member ID Elise Member ID Guarantor Name 01/24/2024 1 [place] [id number] 2 [place] Tyson [id number] [place] Tyson Notes Date Note Type Note Provider Name and Address Organization Details Recorded Time 01/24/2024 text/html AbscessReported by PatientHPIFor quality, patient reportspainful,tendern ess,swelling, andrednessbut reportsno warmthandno drainage. For context, patient reportscellulitis. For associated symptoms, patient reportsmalaisebut reportsno fever,no red streaking,no chills,no headache, andno enlarged lymph nodes. For location, patient reportschest(59 year old male comes in with small cystic swelling of left upper chest area , redness . patient previously have pressed that area and expressed purulent discharge stating it is happening again . come in for further evaluation and also stating seem swollen as compared to right side of chest. denies any fever or fever with chills.). For onset/timing, patient reportssudden. For duration, patient reportsdate of onset 3. For severity, patient reportsworsening. Arcadio Andres NP [address] [place], [address], [place] - [facility] 01/25/2024 07:57:10
--- OUTSIDE RECORDS SUMMARY | 2025-03-31 15:09 | XMS_ITS | Clinical Summary ---
Author Organization [facility] Address [address] [place] [id number] Care Team Providers Care Filler And Trimmer Name Role Phone Calypso-Cindy Freeman MD Primary Care Provider Allergies Active Allergy Reactions Criticality Noted Date Comments Oxytetracycline 02/18/2007 Medications Medication Sig Dispensed Refills Start Date End Date Status sulindac (CLINORIL) 150 MG tablet Take 150 mg by mouth. 0 03/15/2019 Active HYDROcodone-acetami nophen (NORCO) 5-325 MG per tablet 1-2 tabs p.o. every 4-6 hours as needed for pain. May fill for lesser quantity. 40 tablet 0 10/12/2019 Active carisoprodol (SOMA) 350 MG tablet Soma 350 mg tablet Take 1 tablet 3 times a day by oral route. 0 Active traMADol (ULTRAM) 50 MG tablet Take 50 mg by mouth. 0 09/27/2019 Active amoxicillin (AMOXIL) 500 MG tablet Take 4 tabs 1 hour prior to dental appointment 20 tablet 3 10/25/2019 Active methocarbamol (ROBAXIN) 750 MG tablet Take 750 mg by mouth. 0 05/10/2020 Active Active Problems Problem Noted Date Diagnosed Date Postop check 10/25/2019 Arthritis of left hip 05/13/2019 Family History Medical History Relation Name Comments Diabetes Mother Relation Name Status Comments Mother Social History Tobacco Use Types Packs/Day Years Used Date Smoking Tobacco: Never Assessed Sex and Gender Information Value Date Recorded Sex Assigned at Not on file Gender Identity Not on file Sexual Orientation Not on file Job Start Date Occupation Industry Not on file Not on file Not on file Last Filed Vital Signs Vital Sign Reading Time Taken Comments Blood Pressure - - Pulse - - Temperature - - Respiratory Rate - - Oxygen Saturation - - Inhaled Oxygen Concentration - - Weight 104.3 kg (230 lb) 10/18/2021 8:06 AM EDT Height 177.8 cm (5' 10 ) 10/18/2021 8:06 AM EDT Body Mass Index 33 10/18/2021 8:06 AM EDT Plan of Treatment Health Maintenance Due Date Last Done Comments Hepatitis C Screening 1965 COVID-19 Vaccine (#1) 1963 Depression Screening 1975 BMI Counseling 1981 Preventative Health Evaluation 1981 Colon Cancer Screening (Colonoscopy) 01/18/2008 Shingrix-Zoster Vaccine (1 of 2) 2013 Influenza Vaccine (#1) 2025 DTap / Tdap / Td (2 - Td or Tdap) 06/15/2025 016 RSV Adult > 60+ Yrs or Pregn ant (1 - 1-dose 75+ series) 2038 Hepatitis B Vaccines Aged Out No long er eligible based on patient's age to complete this topic Pneumococcal Vaccine Aged Out No long er eligible based on patient's age to complete this topic RSV Ped < 20 months Aged Out No longe r eligible based on patient's age to complete this topic Care Teams Filler And Trimmer Relationship Specialty Start Date End Date Calypso-Cindy Freeman MD PCP - General Internal Medicine 04/26/19
--- OUTSIDE RECORDS SUMMARY | 2025-03-31 15:09 | XMS_ITS ---
Author Name [facility] Organization Unknown History of Medication Use Medication Directions Dispensed Refills Start Date End Date Stat us amLODIPine (NORVASC) 5 mg tablet Take 1 tablet (5 mg total) by mouth 1 (one) time each day. 04/28/2024 active amLODIPine (NORVASC) 5 mg tablet Take by mouth 1 (one) time each day. 04/28/2024 aborted cetirizine (ZyrTEC) 10 mg tablet Take 1 tablet (10 mg total) by mouth 1 (one) time each day. active fluticasone propionate (FLONASE) 50 mcg/actuation nasal spray Administer 1 spray into each nostril 1 (one) time each day. Shake gently. Before first use, prime pump. After use, clean tip and replace cap. active Allergies Allergen Reaction Severity Comment Documented Date Source Statu s TERRAMYCIN Reaction as a child 04/28/2024 [facility] active Problems Problem Status Onset Date Problem Type Date of Resolution Source Essential hypertension active 2024-04-28 ProblemAct [facility] Kidney cysts active 2024-04-28 ProblemAct [facility]AN Seasonal allergies active 2024-04-28 ProblemAct [facility] Asymptomatic microscopic hematuria active 2024-04-28 ProblemAct [facility] Encounter to establish care active EncounterDiagnosisAct CT_T HSFRAN Encounters Encounter Type Encounter Reason Primary Diagnosis Location Date Ambulatory new patient [facility] other specified circumstances [facility] 04/28/2024 Care Team Organization Name Specialty Phone Email Start Date End Da te [facility] 05/01/2024 [facility] Primary Care 04/28/2024 [facility] Herminia Wiggins Primary Care 09/29/2022 01/11/2024 [facility] JARRETT PETERSEN Primary Care 04/01/2022
== END 2025-03-31 14:41 | disposition home or self-care (01) ==
LOC: HO.HNS 12:57
PROVIDERS: Visit Provider Physician Assistant
DX: M54.16 Radiculopathy, lumbar region (principal)
CPT/HCPCS: 99213